=== PATIENT | male | born 1945 | race Caucasian/White ===

== ENCOUNTER → 2017-03-09 | Outpatient (CLI) | payer OTHER ==
--- NOTE | 2017-03-09 13:52 | RADONC ---
RADIATION ONCOLOGY FOLLOWUP NOTE DATE: 03/09/2017 CHART NUMBER: DIAGNOSIS: Prostate cancer. STAGE: IIA, T2N0M0. ECOG PERFORMANCE STATUS: 0 FOLLOWUP NOTE: Mr. 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 The patient presents today reporting that he is doing quite well with no complaints at this time related to his radiation therapy or disease. He has no urinary or bowel difficulties, and no bone pain. REVIEW OF SYSTEMS: The patient's review of systems is otherwise noncontributory. He denies nausea, vomiting, fevers, chills, night sweats, diplopia, headaches, anxiety or depression, anorexia, weight loss, visual disturbances, chest pain, urinary or bowel difficulties, bone pain or neurological problems. PHYSICAL EXAMINATION: The patient is a well-developed, well-nourished male in no acute distress. HEENT exam is normocephalic, atraumatic. Extraocular movements are intact. There is no palpable cervical, supraclavicular, infraclavicular, axillary, or inguinal lymphadenopathy present. Lungs are clear to auscultation and percussion. Heart has a regular rate and rhythm. Abdomen is benign with no hepatosplenomegaly, masses, or tenderness. Rectal examination reveals a normal anal sphincter tone. His prostate is smooth with no evidence of nodularity. Skeletal examination reveals no tenderness to pressure or percussion of the bony skeleton. Extremities reveal no clubbing, cyanosis, or edema. Neurologic exam is grossly intact as is the remainder of the physical examination. ASSESSMENT: The patient is clinically JENNIFER at this time and will be seen by us again in 6 months for further followup. He will also continue be followed by his other physicians as well. cc: *Moisés Robledo MD *Dr. Desai *Dr. Hanson *Pierre Mensah MD
== END ==
LOC: M ONCR 12:52
PROVIDERS: ATTEND Radiology Radiation Oncology
DX: C61 Malignant neoplasm of prostate (principal)

== ENCOUNTER → 2017-09-07 | Outpatient (CLI) | payer OTHER ==
--- NOTE | 2017-09-09 06:30 | RADONC ---
RADIATION ONCOLOGY FOLLOWUP NOTE DATE: 09/07/2017 CHART NUMBER: [id number] DIAGNOSIS: Prostate cancer. STAGE: Stage II A, T2N0M0. ECOG PERFORMANCE STATUS: 1. FOLLOWUP NOTE: Mr. Conde is a very pleasant, 71-year-old, white male with the diagnosis of a stage II A, T2N0M0, moderate to poorly differentiated [place] score 7 (3-4) adenocarcinoma of the prostate who is presenting to us today for routine followup visit 3 years and 7 months post completion of external beam radiation therapy. The patient presents today reporting that he is doing quite well with no complaints at this time related to his radiation therapy disease. He has no urinary or bowel difficulties and no bone pain. REVIEW OF SYSTEMS: The patient's review of systems is noncontributory. Denies nausea, vomiting, fevers, chills, night sweats, diplopia, headaches, anxiety or depression, anorexia, weight loss, visual disturbances, chest pain, urinary or bowel difficulties, bone pain, or neurological problems. PHYSICAL EXAMINATION: The patient is a well-developed, well-nourished male in no acute distress. HEENT exam is normocephalic, atraumatic. Extraocular movements are intact. There is no palpable cervical, supraclavicular, infraclavicular, axillary, or inguinal lymphadenopathy present. Lungs are clear to auscultation and percussion. Heart has a regular rate and rhythm. Abdomen is benign with no hepatosplenomegaly, masses, or tenderness. Rectal examination reveals a normal anal sphincter tone. His prostate bed is smooth with no evidence of nodularity. Skeletal examination reveals no tenderness to pressure or percussion of the bony skeleton. Extremities reveal no clubbing, cyanosis, or edema. Neurologic exam is grossly intact, as is the remainder of the physical examination. ASSESSMENT: The patient is clinically JENNIFER at this time and will be seen by us again in 1 year for further followup. He will also continue to be followed by his other physicians as well. cc: MD Pierre Bosch MD Amjab Sheikh, MD
== END ==
LOC: M ONCR 13:20
PROVIDERS: ATTEND Radiology Radiation Oncology
DX: Z08 Encounter for follow-up examination after completed treatment for malignant neoplasm (principal); Z85.46 Personal history of malignant neoplasm of prostate; Z92.3 Personal history of irradiation

== ENCOUNTER 2025-08-07 16:26 | Inpatient (IN) | payer MEDICARE ==
[~2025-08-07] VITALS: Ht 177.8 cm; Wt 76.5 kg
[2025-08-07 16:37] VITALS: TEMP 96.8
[2025-08-07 16:52] LABS: BASO # 0.1 10^3/uL (0.0-0.2); BASO % 0.6 % (0.0-1.0); EOS # 0.2 10^3/uL (0.0-0.5); EOS % 2.0 % (0.0-3.0); LYMPH # 1.9 10^3/uL (1.5-5.0); LYMPH % 16.1 % (24.0-44.0); MONO # 0.9 10^3/uL (0.0-0.8); MONO % 7.9 % (2.0-8.0); NEUTROPHILS # 8.5 10^3/uL (1.5-8.5); NEUTROPHILS % 73.0 % (36.0-66.0); PLATELET COUNT, AUTOMATED 320 10^3/uL (150-450)
[2025-08-07 17:16] LABS: ALT/SGPT 20 U/L (7.0-40); AST/SGOT 21 U/L (<34); CALCIUM LEVEL 9.4 MG/DL (8.3-10.6); CARBON DIOXIDE LEVEL 25 MMOL/L (20-31); CHLORIDE LEVEL 105 MMOL/L (98-107); CREATININE FOR GFR 1.02 MG/DL (0.70-1.30); GLOMERULAR FILTRATION RATE 75.7 (>42); POTASSIUM SERUM 3.9 MMOL/L (3.5-5.1); SODIUM LEVEL 144 MMOL/L (136-145)
[2025-08-07 20:33] LABS: CK-MB VALUE MASS 3.1 NG/ML (<3.6)
[2025-08-07 20:38] LABS: FREE T4 1.14 NG/DL (0.89-1.76)
[2025-08-07 20:57] LABS: CPK CREATINE PHOSPHOKINASE 119 U/L (46-171); MAGNESIUM LEVEL < 0.5 MG/DL (1.8-2.4); MB/CK RELATIVE INDEX 2.60 (< OR =4)
[2025-08-07 21:11] LABS: KETONE, URINE AUTO RFX NEGATIVE (NEGATIVE); LEUKOCYTE ESTERASE UR AUTO RFX NEGATIVE (NEGATIVE); MUCUS, URINE RFX SMALL (NEGATIVE); NITRITE, URINE AUTO RFX NEGATIVE (NEGATIVE); RBC, URINE AUTO RFX 1 /HPF (0-3); SQUAM EPITHELIAL CELL UR AURFX 0 /HPF (0-6); WBC, URINE AUTO RFX 0 /HPF (0-3)
[2025-08-07] MEDS ORDERED: ISOVUE-370 76% 100 ML VIAL As Ordered ONE (21:38)
[2025-08-08] MEDS: MAG SULF 1GM/100ML (MAG RUN) 1 GM in IV 1 EA IV ONE ×2 (01:33→02:41)
[2025-08-08] MEDS ORDERED: MOM 30 ML SUSPENSION UDC PO PRN (02:40)
[2025-08-08] MEDS ORDERED: MAALOX 30 ML SUSP *UDC PO PRN (02:40)
[2025-08-08] MEDS ORDERED: ACETAMINOPHEN 325 MG TAB PO PRN (02:40)
[2025-08-08] MEDS: MAGNESIUM OXIDE 400 MG TAB PO ONE (03:51)
[2025-08-08] MEDS: NS (Normal Saline) 0.9% 1,000 ML IV SCH (03:52)
[2025-08-08 04:30] LABS: CALCIUM LEVEL 8.7 MG/DL (8.3-10.6); CARBON DIOXIDE LEVEL 25.0 MMOL/L (20-31); CHLORIDE LEVEL 105.0 MMOL/L (98-107); CREATININE FOR GFR 0.95 MG/DL (0.70-1.30); GLOMERULAR FILTRATION RATE 82.4 (>42); MAGNESIUM LEVEL 1.3 MG/DL (1.8-2.4); PHOSPHORUS LEVEL 4.0 MG/DL (2.4-5.1); POTASSIUM SERUM 3.5 MMOL/L (3.5-5.1); SODIUM LEVEL 142.0 MMOL/L (136-145)
[2025-08-08 07:11] LABS: POTASSIUM RANDOM URINE 11.0 MMOL/L; SODIUM,RANDOM URINE 73.0 MMOL/L
[2025-08-08 08:00] VITALS: BP 121/69
[2025-08-08] MEDS ORDERED: DOCUSATE SODIUM 100 MG CAPSULE PO SCH (09:00)
[2025-08-08] MEDS ORDERED: HEPARIN SOD 5000 UNITS/ML 1 ML VIAL/SYRINGE SC SCH (09:00)
[2025-08-08 09:30] VITALS: O2SAT 97
[2025-08-08] MEDS ORDERED: POTASSIUM CHLORIDE 10MEQ SR TABLET PO ONE (10:00)
[2025-08-08] MEDS ORDERED: MAG SULF 1GM/100ML (MAG RUN) 1 GM in IV 1 EA IV SCH (10:00)
== END 2025-08-08 10:00 | disposition left against medical advice (07) | DRG 641 ==
LOC: M ED 16:26 → EDBD 16:26 → M ED INP 08-08 02:37
PROVIDERS: ADMIT Student in an Organized Health Care Education/Training Program; ATTEND General Practice
DX: E83.42 Hypomagnesemia (principal); C78.6 Secondary malignant neoplasm of retroperitoneum and peritoneum; I10 Essential (primary) hypertension; E11.9 Type 2 diabetes mellitus without complications; E78.5 Hyperlipidemia, unspecified; R19.7 Diarrhea, unspecified; K21.9 Gastro-esophageal reflux disease without esophagitis; Z95.5 Presence of coronary angioplasty implant and graft; C61 Malignant neoplasm of prostate; I25.10 Atherosclerotic heart disease of native coronary artery without angina pectoris; Z95.2 Presence of prosthetic heart valve; Z92.3 Personal history of irradiation

== ENCOUNTER 2025-08-14 15:56 | Observation (INO) | payer MEDICARE ==
[~2025-08-14] VITALS: Ht 175.3 cm; Wt 72.0 kg
[2025-08-14 17:09] LABS: ALT/SGPT 16.0 U/L (7.0-40); AST/SGOT 15.0 U/L (<34); CALCIUM LEVEL 8.9 MG/DL (8.3-10.6); CARBON DIOXIDE LEVEL 24.0 MMOL/L (20-31); CHLORIDE LEVEL 107.0 MMOL/L (98-107); CREATININE FOR GFR 0.95 MG/DL (0.70-1.30); GLOMERULAR FILTRATION RATE 82.4 (>42); MAGNESIUM LEVEL 0.8 MG/DL (1.8-2.4); POTASSIUM SERUM 3.8 MMOL/L (3.5-5.1); SODIUM LEVEL 144.0 MMOL/L (136-145)
[2025-08-14] MEDS: MAG SULF 1GM/100ML (MAG RUN) 1 GM in IV 1 EA IV ONE ×2 (17:40→18:42)
[2025-08-14 17:51] LABS: PLATELET COUNT, AUTOMATED 308 10^3/uL (150-450)
[2025-08-14] MEDS ORDERED: ECOT81TA5 PO (17:54)
[2025-08-14] MEDS ORDERED: METO1TAB87 PO (17:54)
[2025-08-14] MEDS ORDERED: MELO15TA28 PO (17:54)
[2025-08-14] MEDS ORDERED: OMEP-173 PO (17:54)
[2025-08-14] MEDS ORDERED: PRAV20TA78 PO (17:54)
[2025-08-14] MEDS ORDERED: NITR0.4S14 SL (17:54)
[2025-08-14] MEDS ORDERED: METF-838 PO (17:54)
[2025-08-14] MEDS ORDERED: FENO54TA2 PO (17:54)
[2025-08-14] MEDS ORDERED: METO1TAB32 PO (19:14)
[2025-08-14] MEDS ORDERED: DEXTROSE 50% 50 ML SYRINGE IV PRN (19:15)
[2025-08-14] MEDS ORDERED: MELO7.5T35 PO (19:15)
[2025-08-14] MEDS ORDERED: GLUCOSE 4 GM CHEW PO PRN (19:15)
[2025-08-14] MEDS ORDERED: GLUCAGON INJ 1 MG VIAL SC PRN (19:15)
[2025-08-14] MEDS ORDERED: ASCO500T PO (19:26)
[2025-08-14] MEDS ORDERED: ESSETAB4 PO (19:26)
[2025-08-14] MEDS ORDERED: VITA-168 PO (19:26)
[2025-08-14] MEDS ORDERED: HOME MED LIST COMPLETE! XX SCH (19:30)
[2025-08-14] MEDS: MAG SULF 1GM/100ML (MAG RUN) 1 GM in IV 1 EA IV SCH (19:44)
[2025-08-14] MEDS: INSULIN LISPRO (NovoLOG) PER UNIT SC SCH (20:57)
[2025-08-14] MEDS: MAGNESIUM OXIDE 400 MG TAB PO SCH (21:28)
[2025-08-15 06:11] VITALS: TEMP 98.8
[2025-08-15 06:53] LABS: BASO # 0.1 10^3/uL (0.0-0.2); BASO % 0.7 % (0.0-1.0); EOS # 0.2 10^3/uL (0.0-0.5); EOS % 3.0 % (0.0-3.0); LYMPH # 1.0 10^3/uL (1.5-5.0); LYMPH % 12.6 % (24.0-44.0); MONO # 0.8 10^3/uL (0.0-0.8); MONO % 10.0 % (2.0-8.0); NEUTROPHILS # 5.6 10^3/uL (1.5-8.5); NEUTROPHILS % 73.3 % (36.0-66.0); PLATELET COUNT, AUTOMATED 285 10^3/uL (150-450)
[2025-08-15 07:29] LABS: CALCIUM LEVEL 8.2 MG/DL (8.3-10.6); CARBON DIOXIDE LEVEL 27.0 MMOL/L (20-31); CHLORIDE LEVEL 107.0 MMOL/L (98-107); CREATININE FOR GFR 0.98 MG/DL (0.70-1.30); GLOMERULAR FILTRATION RATE 79.4 (>42); MAGNESIUM LEVEL 2.1 MG/DL (1.8-2.4); POTASSIUM SERUM 4.8 MMOL/L (3.5-5.1); SODIUM LEVEL 143.0 MMOL/L (136-145)
[2025-08-15] MEDS: INSULIN LISPRO (NovoLOG) PER UNIT SC SCH (07:41)
[2025-08-15] MEDS: PRAVASTATIN 20 MG TAB PO SCH (09:22)
[2025-08-15] MEDS: MULTIVITAMINS/MINERALS THERAP 1 TAB PO SCH (09:23)
[2025-08-15] MEDS: ASCORBIC ACID 500 MG TAB PO SCH (09:23)
[2025-08-15] MEDS: ASPIRIN 81 MG ENTERIC TABLET PO SCH (09:24)
[2025-08-15] MEDS: PANTOPRAZOLE 40MG VIAL IV SCH (09:25)
[2025-08-15] MEDS: ENOXAPARIN 40 MG/0.4 ML SYRINGE (J1650 PER 10MG) SC SCH (09:25)
[2025-08-15 09:29] VITALS: BP 134/71
[2025-08-15] MEDS: METOPROLOL SUCC *XL* 12.5 MG PER 1/2 TAB PO SCH (09:29)
[2025-08-15 10:41] VITALS: O2SAT 98
[2025-08-15] MEDS ORDERED: MAGN400T33 PO ×2 (10:42→14:29)
[2025-08-15 11:22] VITALS: BP 145/92
[2025-08-15 14:17] LABS: CHLORIDE,RANDOM URINE 150.0 MMOL/L
[2025-08-15 14:25] LABS: CALCIUM,RANDOM URINE 18.1 MG/DL
[2025-08-15 19:01] LABS: URINE MAGNESIUM 24HR 147.5 MG/24HR (24-255)
[2025-08-15 21:23] LABS: MAGNESIUM URINE RANDOM 8.6 MG/DL
[2025-08-19 16:33] LABS: ALDOSTERONE < 1.0 ng/dL (see note)
[2025-08-22 10:47] LABS: RENIN LEVEL 0.26 ng/mL/h (0.25-5.82)
== END 2025-08-15 16:35 | disposition home or self-care (01) ==
LOC: M ED 15:56 → M ED INP 18:48 → INTOOBSV 18:48
PROVIDERS: ADMIT Student in an Organized Health Care Education/Training Program; ATTEND Student in an Organized Health Care Education/Training Program
DX: E83.42 Hypomagnesemia (principal); I10 Essential (primary) hypertension; E78.5 Hyperlipidemia, unspecified; E11.9 Type 2 diabetes mellitus without complications; I25.10 Atherosclerotic heart disease of native coronary artery without angina pectoris; Z95.5 Presence of coronary angioplasty implant and graft; K21.9 Gastro-esophageal reflux disease without esophagitis; Z92.3 Personal history of irradiation; Z85.46 Personal history of malignant neoplasm of prostate; Z87.891 Personal history of nicotine dependence; Z79.84 Long term (current) use of oral hypoglycemic drugs; Z79.82 Long term (current) use of aspirin; Z79.899 Other long term (current) drug therapy
CPT/HCPCS: 36415; 71045; 80048; 80053; 81050; 82088; 82340; 82436; 82570; 83735; 84244; 84550; 85025; 85027; 93005; 93041; 94760; 96365; 96366; 96372; 96375; 96376; 99285; G0378; J1650; J2470; J3475

== ENCOUNTER → 2025-08-18 | Outpatient (CLI) | payer MEDICARE ==
[~2025-08-18] MED LIST: ASCO500T PO; ECOT81TA5 PO; ESSETAB4 PO; FENO54TA2 PO; MAGN400T33 PO; MELO15TA28 PO; MELO7.5T35 PO; METF-838 PO; METO1TAB32 PO; METO1TAB87 PO; NITR0.4S14 SL; OMEP-173 PO; PRAV20TA78 PO; VITA-168 PO
[2025-08-18 15:33] LABS: CALCIUM LEVEL 9.6 MG/DL (8.3-10.6); CARBON DIOXIDE LEVEL 26.0 MMOL/L (20-31); CHLORIDE LEVEL 104.0 MMOL/L (98-107); CREATININE FOR GFR 1.19 MG/DL (0.70-1.30); GLOMERULAR FILTRATION RATE 62.9 (>42); MAGNESIUM LEVEL 1.6 MG/DL (1.8-2.4); POTASSIUM SERUM 5.4 MMOL/L (3.5-5.1); SODIUM LEVEL 138.0 MMOL/L (136-145)
== END ==
LOC: M LAB 14:24
DX: E83.42 Hypomagnesemia (principal)

== ENCOUNTER → 2025-08-26 | Outpatient (REF) | payer MEDICARE | LOC: M LABDRAWP 13:10 | PROVIDERS: ATTEND Internal Medicine Cardiovascular Disease | DX: E83.42 Hypomagnesemia (principal) ==

== ENCOUNTER → 2025-09-10 | Outpatient (REF) | payer MEDICARE | LOC: M LABDRWAD 13:01 | PROVIDERS: ATTEND Internal Medicine Cardiovascular Disease | DX: E83.42 Hypomagnesemia (principal) ==

== ENCOUNTER → 2025-09-23 | Outpatient (REF) | payer MEDICARE | LOC: M LABDRWAD 12:49 | PROVIDERS: ATTEND Internal Medicine Cardiovascular Disease | DX: E83.42 Hypomagnesemia (principal) ==

== ENCOUNTER → 2025-10-07 | Outpatient (REF) | payer MEDICARE | LOC: M LABDRWAD 12:48 | PROVIDERS: ATTEND Internal Medicine Cardiovascular Disease | DX: E83.42 Hypomagnesemia (principal) ==

== ENCOUNTER → 2025-10-21 | Outpatient (REF) | payer MEDICARE | LOC: M LABDRWAD 13:09 | PROVIDERS: ATTEND Internal Medicine Cardiovascular Disease | DX: E83.42 Hypomagnesemia (principal) ==